=== PATIENT | female | born 1960 | race Caucasian/White ===

== ENCOUNTER 2019-09-03 08:33 | Outpatient (CLI) | payer OTHER, SELFPAY ==
--- NOTE | 2019-09-03 08:41 | EST_ITS ---
Patient Info Name: Lizzy Evans Age: 58 years : 1960 Gender: Female Ht: 61 in Wt: 196 lbs BSA: 2.00 m2 Exam Date: 09/03/2019 8:58 AM Exam Location: [facility] Stress Patient Status: Outpatient Admit Date: 09/03/2019 Staff Ordering Physician: Jamee Melendez NP Attending Provider: Shazia Ruiz MD Exercise Technologist: Indy William RDCS Exercise Physician: Дмитрий Toribio DO Exam Type: CA stress test treadmill Study Info Indications R06.00 - Dyspnea, unspecified A treadmill exercise stress test was performed. Summary 1. 1. Negative Juan Carlos exercise stress test for ischemic ST changes by ECG criteria. 2. 2. Poor functional capacity, achieving 4 METs of workload. 3. 3. Appropriate HR response to exercise. 4. 4. Appropriate HR recovery at 1 minute post exercise. 5. 5. No imaging with stress testing. 6. 6. Patient informed of the avove results. Protocol: Juan Carlos Stress ECG Details Stage: REST Duration (min): 5 min : 1 sec Speed (mph): 0.0 Grade (%): 0 HR (bpm): 101 SBP (mmHg): --- DBP (mmHg): --- METS: --- Stage: REST Duration (min): 7 min : 33 sec Speed (mph): 0.0 Grade (%): 0 HR (bpm): 111 SBP (mmHg): --- DBP (mmHg): --- METS: --- Stage: STAGE 1 Duration (min): 1 min : 0 sec Speed (mph): 1.7 Grade (%): 10 HR (bpm): 130 SBP (mmHg): --- DBP (mmHg): --- METS: --- Stage: STAGE 1 Duration (min): 2 min : 0 sec Speed (mph): 1.7 Grade (%): 10 HR (bpm): 142 SBP (mmHg): --- DBP (mmHg): --- METS: --- Stage: STAGE 1 Duration (min): 3 min : 0 sec Speed (mph): 1.7 Grade (%): 10 HR (bpm): 147 SBP (mmHg): --- DBP (mmHg): --- METS: --- Stage: RECOVERY Duration (min): 0 min : 59 sec Speed (mph): 0.0 Grade (%): 0 HR (bpm): 136 SBP (mmHg): --- DBP (mmHg): --- METS: --- Stage: RECOVERY Duration (min): 1 min : 59 sec Speed (mph): 0.0 Grade (%): 0 HR (bpm): 117 SBP (mmHg): --- DBP (mmHg): --- METS: --- Stage: RECOVERY Duration (min): 2 min : 59 sec Speed (mph): 0.0 Grade (%): 0 HR (bpm): 116 SBP (mmHg): --- DBP (mmHg): --- METS: --- Stage: RECOVERY Duration (min): 3 min : 56 sec Speed (mph): 0.0 Grade (%): 0 HR (bpm): 110 SBP (mmHg): --- DBP (mmHg): --- METS: --- Rest HR: 111 bpm Peak HR: 147 bpm Max Pred HR: 164 bpm % Max Pred HR: 90 % Target HR: 139 bpm Robledo Score: -11 Termination Reason: Reached target heart rate or workload Cardiac Symptoms: Shortness of breath Max ST Seg Deviation: 2.90 mm Total Time: 3 min : 0 sec Angina Score: None Total METS: 4.7 Resting ECG Sinus rhythm, IRBBB, PRWP. Stress ECG No ST changes. Arrhythmias None. Report Signatures
== END 2019-09-03 08:34 | disposition home or self-care (01) ==
LOC: ANHCARD 08:33
PROVIDERS: PCP Family Medicine; Visit Provider Family Medicine
DX: R06.00 Dyspnea, unspecified (principal)
CPT/HCPCS: 93017

== ENCOUNTER 2019-12-31 07:51 | Outpatient (CLI) | payer OTHER, SELFPAY ==
--- NOTE | 2020-01-06 14:51 | WPDPFTINT ---
PFT Interpretation PFT Interpretation: This PFT met all criteria for ATS standards and reproducibility FEV/FVC post bronchodilator 69% FEV1 69% or 1.43 liters FVC 74% or 2.08 liters No bronchodilator challenge was ordered TLC 74% or 3.18 liters RV 70% RV/TLC 35% DLCO 57% when adjusted for alveolar volume but not adjusted for hemoglobin Flow volume loops showed some expiratory coving Impression: Combined obstructive/restrictive ventilatory defect with moderately reduced diffusion capacity. No bronchodilator challenge was ordered and thus limits interpretability somewhat. Clinical correlation is advised.
== END 2019-12-31 07:52 | disposition home or self-care (01) ==
PROVIDERS: PCP Family Medicine; Visit Provider Nurse Practitioner
DX: R06.02 Shortness of breath (principal); R94.2 Abnormal results of pulmonary function studies
CPT/HCPCS: 94375; 94726; 94729

== ENCOUNTER 2020-01-12 06:03 | Emergency (ER) | payer OTHER, SELFPAY ==
--- NOTE | ~2020-01-12 | CT_ITS ---
EXAMINATION: CT abdomen pelvis w con EXAM DATE: 01/12/2020 07:19 INDICATION: Abdominal pain, constipation, symptoms 5 days. TECHNIQUE: Spiral CT of the abdomen and pelvis was performed following intravenous injection of 100 m L Omnipaque 350. Axial, coronal and sagittal images were reviewed. The dose-length product (DLP) fo r this examination was 1129.82 mGy-cm. The exposure was tailored according to patient size (auto mA exposure control), and iterative reconstruction (ASIR) was used as additional dose reduction techniqu e. Comparison is made to prior examination from 11/07/2015. FINDINGS: There are several loops of moderately distended jejunum with air-fluid levels, along with a loop that demonstrates mild small bowel wall thickening (indicated on axial image 124). There is no pneumatosis, portal venous gas. The mesenteric vasculature enhances normally. There is a gradual parry sition to normal calibered ileum. Most likely nonspecific consider enteritis, infectious etiology, in flammatory bowel disease. The liver, spleen, adrenal glands and pancreas are unremarkable. Gallbladder is unremarkable. No bi liary obstruction. Portal and splenic veins are patent. Kidneys enhance symmetrically. Bicornuate uterus. 5 mm left calyceal or calyceal diverticular stone. No hydronephrosis or ureteral stone. The bladder is unremarkable. There is no retroperitoneal or pelvic lymphadenopathy. There are small nodules of soft tissue in the pelvis less than 2 cm, a couple on either side of the r ectum, unchanged or decreased in size compared to prior study. Also, an exiting right S2 nerve root i s expanded, more likely than dilated nerve root sleeve. These could be benign neurogenic tumors, such as schwannomas. Reportedly these one was previously biopsied in 2016, correlate with report from [facility] histology. The appendix is normal. There is colonic fluid, correlate for diarrhea. No free intraperitoneal gas. The heart is normal in size. There are no pericardial or pleural effusions. The lung bases a re unremarkable. There are no osteoblastic or osteolytic lesions identified. IMPRESSION: 1. Moderately dilated jejunal loops without transition point, approximately 20 cm segment of mild sm all bowel wall thickening. Colonic fluid. Consider enteritis, inflammatory bowel disease. 2. Stable small pelvic soft tissue masses, could be neurogenic tumors or other benign histology, cor relate with prior biopsy result. Reviewed, dictated and finalized at location A. ER HEEL TAP IMPRESSION: 1. Moderately dilated jejunal loops without transition point, approximately 20 cm segment of mild small bowel wall thickening. Colonic fluid. Consider enteri tis, inflammatory bowel disease. 2. Stable small pelvic soft tissue masses, could be neurogenic tumors or other benign histology, correlate with prior biopsy result.
[2020-01-12 06:10] VITALS: BP 142/84; PULSE 114; RESP 18; TEMP 35.9; O2SAT 95
--- NOTE | 2020-01-12 06:26 | ED.GENADULT ---
HPI - General Adult General Chief complaint: Unspecified <Carrington Alexander DO - Last Filed: 01/12/20 19:04> Stated complaint: constipated x1week, vomiting <Carrington Alexander DO - Last Filed: 01/12/20 19:04> Time Seen by Provider: 01/12/20 06:07 <Carrington Alexander DO - Last Filed: 01/12/20 19:04> Source: RN notes reviewed <Carrington Alexander DO - Last Filed: 01/12/20 19:04> History of Present Illness HPI narrative: Patient presents to emergency department from home for abdominal pain. Patient states that she has not had a bowel movement in the past 5 days. States she gone to her PCP yesterday and was prescribed magnesium citrate which she drank and vomited and states she has had numerous episodes of vomiting since that time. States she is also developed abdominal pain in the lower abdomen bilaterally described as cramping. She has any fevers or chills chest pain shortness of breath or any other symptoms she is taken no previous medication for the symptoms <Carrington Alexander DO - Last Filed: 01/12/20 19:04> Related Data Home medications: Home Medications Medication Instructions Recorded Confirmed albuterol sulfate [ProAir HFA] INHALATION 01/15/19 11/13/19 bupropion HCl 75 mg tablet ea PO 08/17/19 11/13/19 ezetimibe 10 mg tablet 10 mg PO DAILY tablet 08/17/19 11/13/19 sennosides 8.6 mg tablet 8.6 mg PO DAILY 01/11/20 <Carrington Alexander DO - Last Filed: 01/12/20 19:04> Allergies/adverse reactions: Allergies Allergy/AdvReac Type Severity Reaction Status Date / Time morphine Allergy Unknown itchy Verified 01/11/20 07:59 <Carrington Alexander DO - Last Filed: 01/12/20 19:04> Review of Systems Review of Systems: Narrative: Gen.: Denies fevers or chills ENT: Denies congestion Respiratory: Denies shortness of breath or cough CV: Denies chest pain or palpitations GI: See HPI denies burning, urgency, frequency or hematuria Musculoskeletal: Denies back pain or muscle pain Neuro: Denies numbness, tingling, weakness or focal weakness Skin: Denies rash Except as documented, all other systems reviewed and negative <Carrington Alexander DO - Last Filed: 01/12/20 19:04> PENDING SALE TO [facility] Past Medical History Medical History: Medical History (Updated 01/12/20 @ 10:16 by Melissa Donis MD) Anemia Arthritis Asthma Bronchitis Chronic back pain Depression Dyspnea on exertion Fractures Arm Hypercholesteremia Hypothyroidism Localized edema Migraines Mitral valve prolapse <Carrington Alexander DO - Last Filed: 01/12/20 19:04> Surgical History Surgical History: Surgical History History of orthopedic surgery Left knee, 1980 Previous section <Carrington Alexander DO - Last Filed: 01/12/20 19:04> Family History Family History: Family History Mother Hypertension Heart disease COPD (chronic obstructive pulmonary disease) Father Family history of coronary artery disease <Carrington Alexander DO - Last Filed: 01/12/20 19:04> Social History Social History: Social History Smoking status: Never smoker Alcohol intake: current <Carrington Alexander DO - Last Filed: 01/12/20 19:04> Exam Narrative: Exam Narrative: APPEARANCE: No acute distress, nontoxic, resting in bed HEENT: Normocephalic, atraumatic, OMM RESPIRATORY: No respiratory distress, clear to auscultation bilaterally with no rhonchi wheezing or rales CARDIOVASCULAR: RRR s murmur ABDOMINAL: Soft, nondistended, tender palpation right lower quadrant left lower quadrant, no tenderness right upper quadrant left upper quadrant no rebound or guarding MUSCULOSKELETAl: Moves all extremities. No clubbing, cyanosis or edema. NEURO: Awake and alert. Following commands, speech normal, no focal deficits SKIN:: Warm, dry. Normal Color PSYCHIATRI
[2020-01-12 06:38] LABS: Basophils Absolute Auto 0.1 K/mm3 (0.0-0.1); Basophils Percent Auto 0.7 % (0.2-1.2); Eosinophils Absolute Auto 0.3 K/mm3 (0-0.3); Eosinophils Percent Auto 1.9 % (0-4.4); Hematocrit 44.7 % (37.0-47.0); Hemoglobin 14.6 g/dL (12.0-15.0); Immature Granulocyte Absolute 0.16 K/mm3 (0.00-0.031); Immature Granulocyte Percent A 1.1 % (0-0.5); Lymphocytes Absolute Auto 2.11 K/mm3 (0.9-3.2); Mean Corpuscular HGB Conc 32.7 g/dl (32-36); Mean Corpuscular Hemoglobin 29.4 pg (26-34); Mean Corpuscular Volume 89.9 fl (80-100); Mean Platelet Volume 9.8 fl (7.4-10.4); Monocytes Absolute Auto 1.1 K/mm3 (0.1-0.6); Monocytes Percent Auto 7.3 % (2.6-8.5); Neutrophils Absolute Auto 11.4 K/mm3 (1.3-6.7); Platelet Count Result 401 k/mm3 (150-375); Red Blood Count 4.97 M/mm3 (4.2-5.4); Red Cell Distribution Width 13.3 % (11.5-14.5); White Blood Count 15.1 K/mm3 (4.5-10.0)
[2020-01-12] MEDS: SODIUM CHLORIDE 0.9% IV 1,000 ML 999 ML IV CONT ×2 (06:41→08:17)
[2020-01-12] MEDS: ONDANSETRON INJ 4 MG/2 ML VIAL IV PUSH (06:41)
[2020-01-12 06:54] LABS: Alanine Aminotransferase 20 U/L (4-35); Albumin Level 4.4 g/dL (3.5-5.1); Alkaline Phosphatase 154 U/L (38-126); Anion Gap 9 mmol/L (8-16); Aspartate Amino Transferase 23 U/L (14-36); Bilirubin,Total 1.5 mg/dL (0.2-1.3); Blood Urea Nitrogen 15 mg/dL (7-17); Calcium 10.4 mg/dL (8.4-10.2); Carbon Dioxide 32 mmol/L (22-30); Chloride 99 mmol/L (98-107); Estimated Glomerular Filt Rate > 60; Glucose 137 mg/dL (65-105); Lipase 23 U/L (23-300); Potassium 4.2 mmol/L (3.4-5.0); Sodium 140 mmol/L (137-145)
[2020-01-12 07:35] VITALS: BP 151/87; PULSE 110; RESP 19; O2SAT 94
[2020-01-12 07:49] LABS: Add Urine Microscopic? YES; Appearance Urine Clear (Clear); Bacteria Urine Trace /hpf; Bilirubin Urine Negative (Negative); Blood Urine Negative (Negative); Color Urine Yellow (Yellow); Glucose Urine UA Negative (Negative); Ketones Urine Trace mg/dL (Negative); Leukocyte Esterase Ur 2+ LEU/UL (Negative); Mucus Urine Few /lpf; Nitrate Urine Negative (Negative); Protein Urine Negative (Negative); Specific Grav Ur > 1.060 (1.001-1.035); Squamous Epithelial Cell Urine Many /hpf (Few); Urobilinogen Urine Negative mg/dL (<2.0); WBC Urine 31-50 /hpf
[2020-01-12 08:59] VITALS: BP 155/77; PULSE 90; RESP 17; O2SAT 94
[2020-01-12 10:11] VITALS: BP 161/91; PULSE 94; RESP 18; O2SAT 95
[2020-01-12 10:34] VITALS: BP 147/86; PULSE 96; RESP 18; O2SAT 95
== END 2020-01-12 10:35 | disposition home or self-care (01) ==
PROVIDERS: Emergency Medicine; Emergency Provider General Practice; PCP Family Medicine
DX: K52.9 Noninfective gastroenteritis and colitis, unspecified (principal); N39.0 Urinary tract infection, site not specified
CPT/HCPCS: 36415; 74177; 80053; 81001; 83690; 85025; 87086; 87088; 96361; 96374; 96375; 99284; J0131; J2405; J7030; Q9967

== ENCOUNTER 2020-02-04 07:38 | Outpatient (CLI) | payer OTHER, SELFPAY ==
--- NOTE | ~2020-02-04 | US_ITS ---
US right upper quadrant INDICATION: Right upper quadrant pain PROCEDURE: Realtime right upper abdominal ultrasound. COMPARISON: Ultrasound dated 06/25/2014 FINDINGS: Pancreas is obscured by bowel gas. Liver echotexture is increased, consistent with fatty i nfiltration. There is normal directional flow in the portal vein. There is comet tail artifact originating from the gallbladder wall. Gallbladder wall is mildly thicke hardy measuring 2.7 mm. Common bile duct measures 3 mm. No sonographic Baker's sign. IMPRESSION: 1: Gallbladder wall thickening with comet tail artifact, consistent with adenomyomatosis. This could indicate interstitial edema, chronic liver disease or chronic cholecystitis. 2: Fatty infiltration of the gallbladder. Reviewed, dictated and finalized at location A. [facility] MAGISTRATE IMPRESSION: 1: Gallbladder wall thickening with comet tail artifact, consistent with adenom yomatosis. This could indicate interstitial edema, chronic liver disease or chr onic cholecystitis. 2: Fatty infiltration of the gallbladder.
== END 2020-02-04 07:39 | disposition home or self-care (01) ==
PROVIDERS: PCP Family Medicine; Visit Provider Nurse Practitioner
DX: R10.11 Right upper quadrant pain (principal); R93.2 Abnormal findings on diagnostic imaging of liver and biliary tract
CPT/HCPCS: 76705

== ENCOUNTER 2020-02-18 07:39 | Outpatient (CLI) | payer OTHER, SELFPAY ==
--- NOTE | ~2020-02-18 | NM_ITS ---
NM hepatobiliary w pharm Procedure: Hepatobiliary scan performed following IV administration 5 mCi Tc 99m Choletec. At 60 min utes 1.8 mcg CCK administered IV for evaluation of gallbladder ejection fraction. Indication: Chronic cholecystitis Comparison: Ultrasound dated 02/04/2020 Findings: There is normal radiotracer uptake in the liver parenchyma with prompt excretion into the b iliary tract. Gallbladder visualized at 25 minutes. Small bowel visualized at 40 minutes. Gallbla dder ejection fraction measures 28 %. (Normal is considered 10-90%, but most patients with gallbladde r dysfunction have GBEF of less than 35%) Impression: 1: Gallbladder ejection fraction below normal limits measuring 28%. Low GBEF is associated with gall bladder dysfunction, although not specific for acute or chronic cholecystitis. Reviewed, dictated and finalized at location A. O OPERATOR Impression: 1: Gallbladder ejection fraction below normal limits measuring 28%. Low GBEF i s associated with gallbladder dysfunction, although not specific for acute or c hronic cholecystitis.
== END 2020-02-18 07:40 | disposition home or self-care (01) ==
LOC: ANHIMG 07:43
PROVIDERS: PCP Family Medicine; Visit Provider Surgery
DX: K81.1 Chronic cholecystitis (principal)
CPT/HCPCS: 78227; A9537; J2805

== ENCOUNTER 2020-02-28 09:14 | Outpatient (CLI) | payer OTHER, SELFPAY ==
--- NOTE | 2020-04-09 13:59 | WPDHOMESLEEP ---
Sleep Study - Home Unattended Date of Study: 02/28/20 Ordering Provider: Radha Kim NP Interpreting Physician: Bria Ferris MD Home Sleep Study Type: Watch PAT Height: 1.55 m Weight: 90.718 kg Body Mass Index: 37.8 Neck Circumference (inches): 16 [place]: 11 Reason for Sleep Study hypersomnia Sleep History Lizzy Evans is a 59 year old female with occasional snoring, rarely loud enough that others complain about it. She rarely awakens at night with heartburn, belching or coughing. She rarely awakens from sleep feeling short of breath. She frequently has trouble sleep with a cold. She rarely wakes up gasping for breath at night, rarely has breathing problems at night observed by others and rarely sweats excessively at night. She does not notice her heart pounding or beating irregularly at night. She constantly falls asleep during the day. She frequently falls asleep involuntarily. She does not indicate whether not she falls asleep while driving. She rarely falls asleep while exerting physical effort. She does not have loss of muscle tone was strong emotion. 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 She rarely feels paralyzed on waking or falling asleep. She occasionally has vivid dreamlike scenes upon awakening or falling asleep. She rarely feels afraid to go to sleep. She rarely has nightmares. She occasionally remembers her dreams and occasionally has racing thoughts. She frequently feels sad, depressed and anxious. She frequently has muscular tension. She frequently notices parts of her body jerking. She frequently kicks at night. She frequently has crawling and aching feelings in her legs. She occasionally has leg pain at night. She rarely has morning jaw pain. She rarely grinds her teeth during sleep. She occasionally has bothered by pain during the day. She rarely is awakened by pain at night. She occasionally wakes up feeling stiff in the morning with sore or achy muscles. She occasionally wakes up with pain in the neck and spine. She has fatigue, headaches bowel disturbances and has difficulty making decisions. She complains of insomnia. Normal bedtime is 12 midnight, sometimes falling asleep quickly, but at other times taking quite a while to fall asleep. She wakes up about 3 times at night. She stays awake for about an hour. While awake she goes to the bathroom. She wakes in the morning at 6:00 a.m.. The weekend schedule is the same. She estimates 4-5 hours of sleep at night. She may stay in bed a few hours after waking up. She does take naps in the afternoon or evening. Short naps are not refreshing. She is usually drowsy in the morning for 1 hour or longer. Habits: never smoked tobacco. She drinks caffeine daily. No alcohol or recreational drugs. [facility] Past Medical History Medical History Anemia Arthritis Asthma BMI 39.0-39.9,adult Bronchitis Chronic back pain Depression Dyspnea on exertion Fractures Arm History of blood transfusion Hypercholesteremia Hypothyroidism Localized edema Migraines Mitral valve prolapse Surgical History Surgical History H/O tubal ligation History of hemorrhoidectomy History of orthopedic surgery Left knee, 1979 Hx laparoscopic cholecystectomy 03/13/20 Previous section Family History Family History Mother Hypertension Heart disease COPD (chronic obstructive pulmonary disease) Father , 70 Family history of coronary artery disease Social History Social History Smoking status: Never smoker Alcohol intake: current Substance use: never 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
[2020-04-09 14:08] VITALS: BMI 37.8
== END 2020-02-28 09:15 | disposition home or self-care (01) ==
LOC: ANHCSM 09:16
PROVIDERS: PCP Family Medicine; Visit Provider Nurse Practitioner
DX: G47.33 Obstructive sleep apnea (adult) (pediatric) (principal)
CPT/HCPCS: 95800

== ENCOUNTER 2020-03-10 01:46 | Outpatient (CLI) | payer OTHER, SELFPAY ==
[2020-03-10 16:31] LABS: SARS-CoV-2 RNA PCR Negative
== END 2020-03-10 01:47 | disposition home or self-care (01) ==
LOC: ANHCOVIDDT 01:50
PROVIDERS: PCP Family Medicine; Visit Provider Surgery
DX: Z01.812 Encounter for preprocedural laboratory examination (principal); Z20.822 Contact with and (suspected) exposure to COVID-19
CPT/HCPCS: 36415; 80048; 80076; 82150; 83690; 86850; 86900; 86901; 93005; C9803; U0003; U0005

== ENCOUNTER 2020-03-10 11:18 | Outpatient (CLI) | payer OTHER, SELFPAY ==
--- NOTE | 2020-03-10 11:20 | ECG_ITS ---
Measurements Intervals [place] Rate: 105 P: 12 WI: 145 QRS: 259 QRSD: 105 T: 14 QT: 334 QTc: 442 Interpretive Statements SINUS TACHYCARDIA RSR' IN V1 OR V2, CONSIDER RIGHT VENTRICULAR HYPERTROPHY OR RIGHT VCD CONSIDER INFERIOR INFARCT, AGE INDETERMINATE BORDERLINE T WAVE ABNORMALITY- ANTERIOR LEADS BASELINE ARTIFACT- I, III, V3 ABNORMAL ECG Electronically Signed On 03-10-2020 11:50:11 MED DIR by Дмитрий Toribio D.O.
[2020-03-10 12:27] LABS: Alanine Aminotransferase 16 U/L (4-35); Albumin Level 4.2 g/dL (3.5-5.1); Alkaline Phosphatase 101 U/L (38-126); Amylase 56 U/L (30-110); Aspartate Amino Transferase 19 U/L (14-36); Bilirubin,Total 0.9 mg/dL (0.2-1.3); Lipase 42 U/L (23-300)
[2020-03-10 14:27] LABS: Anion Gap 8 mmol/L (8-16); Blood Urea Nitrogen 17 mg/dL (7-17); Calcium 9.9 mg/dL (8.4-10.2); Carbon Dioxide 29 mmol/L (22-30); Chloride 104 mmol/L (98-107); Estimated Glomerular Filt Rate > 60; Glucose 98 mg/dL (65-105); Potassium 3.9 mmol/L (3.4-5.0); Sodium 141 mmol/L (137-145)
== END 2020-03-10 11:19 | disposition home or self-care (01) ==
LOC: ANHSURGERY 11:20
PROVIDERS: Anesthesiology; PCP Family Medicine; Visit Provider Surgery
DX: Z01.818 Encounter for other preprocedural examination (principal); R94.31 Abnormal electrocardiogram [ECG] [EKG]; K81.1 Chronic cholecystitis; Z79.899 Other long term (current) drug therapy
CPT/HCPCS: 36415; 80048; 80076; 82150; 83690; 86850; 86900; 86901; 93005

== ENCOUNTER 2020-03-13 01:34 | Day surgery (SDC) | payer OTHER, SELFPAY ==
[2020-03-03 17:07] VITALS: BMI 39.1
--- NOTE | 2020-03-12 11:02 | PM.SD ---
Same Day Admit/Disch: HPI History of Present Illness Chief complaint: Chronic Cholecystits With Stones Narrative: Lizzy Evans is a 59 year old female Who has chronic postprandial right upper quadrant abdominal pain. Initially this was after eating fatty foods but now she has pain with eating nearly anything. She has a strong family history of gallbladder disease in that both her sister and her mother have had cholecystectomy. The patient had an ultrasound of the gallbladder which did not show stones but did show adenomyomatosis. She had a HIDA scan which showed a low gallbladder ejection fraction of 28%. She is felt to have chronic cholecystitis and is taken to surgery for laparoscopic cholecystectomy. [facility] Past Medical History Medical History Anemia Arthritis Asthma BMI 39.0-39.9,adult Bronchitis Chronic back pain Depression Dyspnea on exertion Fractures Arm History of blood transfusion Hypercholesteremia Hypothyroidism Localized edema Migraines Mitral valve prolapse Surgical History Surgical History H/O tubal ligation History of hemorrhoidectomy History of orthopedic surgery Left knee, 1979 Previous section Family History Family History Mother Hypertension Heart disease COPD (chronic obstructive pulmonary disease) Father , 70 Family history of coronary artery disease Social History Social History Smoking status: Never smoker Alcohol intake: current Substance use: never Living arrangements: with family 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 Spiritual care concerns: No Same Day Admit/Disch: Med Pre-admit Medications Home Medications Medication Instructions Recorded Confirmed Type albuterol sulfate [ProAir HFA] 2 puff INHALATION PRN PRN 01/15/19 03/13/20 History ezetimibe 10 mg tablet 10 mg PO DAILY tablet 08/17/19 03/13/20 History fluticasone 250 mcg-salmeterol 50 1 inhalation INHALATION BID #60 08/20/19 03/13/20 Rx mcg/dose blistr powdr for each inhalation furosemide 20 mg tablet 20 mg PO QAM #30 tablet 11/12/19 03/13/20 Rx potassium chloride 10 mEq 10 meq PO DAILY #30 tablet 11/13/19 03/13/20 Rx tablet,extended release levothyroxine 175 mcg tablet 175 mcg PO DAILY #90 tablet 11/29/19 03/13/20 Rx cholecalciferol (vitamin D3) 1,250 1,250 mcg PO WEEKLY #12 cap 12/10/19 03/03/20 Rx mcg (50,000 unit) capsule hydrocodone-acetaminophen 1 - 2 tablet PO Q6H PRN #7 tablet 03/13/20 Rx ketorolac 10 mg PO Q6H 4 Days #16 tablet 03/13/20 Rx Exam Const: General: comfortable, no acute distress, alert and awake HENMT: Head: normocephalic and atraumatic Mouth: Yes Normal oral and palatal mucosa present Eyes: Conjunctivae: conjunctivae normal Pupils: Equal, round and reactive pupils present EOM: EOMs intact bilaterally Neck: Neck: normal visual inspection, no lymphadenopathy and nontender Resp: Effort & Inspection: normal respiratory effort Auscultation: clear to auscultation bilaterally Cardio: Rate: regular rate Rhythm: regular rhythm Heart sounds: no gallops, no murmurs and no rubs GI: Inspection: non-distended GI Palp: Yes Soft to palpation, No Tenderness to palpation present (GI), No Hepatomegaly present and No Splenomegaly present Skin: Lesions: no lesions Rashes: no rashes Neuro: General: no focal motor deficits and CN's II-XI intact bilaterally Cranial nerves: Yes Equal, round and reactive pupils present, Yes Bilaterally intact EOM present, Yes facial symmetry and Yes Midline tongue present Speech: normal speech Motor exam (neuro): 5/5 motor strength present throughout and Motor abnormalities not present Extrem: General: no clubbing, cyanosis or edema and edema Psych: Affect: normal affect Thou
--- NOTE | 2020-03-12 13:24 | WPDANESEPPF ---
Anes - Initial Pre Proc Eval Procedure: Operation Date: 03/13/20 10:30 Proposed Procedures p Laparoscopic Cholecystectomy - Eldon Ardon MD Date/Time: 03/12/20 13:24 Surgeon: Eldon Ardon MD Pre Op Diagnosis: Chronic Cholecystits With Stones Patient Data Age: 59 Gender: F Height: 1.55 m Weight: 94 kg Allergies Allergy/AdvReac Type Severity Reaction Status Date / Time morphine Allergy Mild Itching Verified 03/13/20 08:18 Home Medications Medication Instructions Recorded Confirmed Type albuterol sulfate [ProAir HFA] 2 puff INHALATION PRN PRN 01/15/19 03/13/20 History ezetimibe 10 mg tablet 10 mg PO DAILY tablet 08/17/19 03/13/20 History fluticasone 250 mcg-salmeterol 50 1 inhalation INHALATION BID #60 08/20/19 03/13/20 Rx mcg/dose blistr powdr for each inhalation furosemide 20 mg tablet 20 mg PO QAM #30 tablet 11/12/19 03/13/20 Rx potassium chloride 10 mEq 10 meq PO DAILY #30 tablet 11/13/19 03/13/20 Rx tablet,extended release levothyroxine 175 mcg tablet 175 mcg PO DAILY #90 tablet 11/29/19 03/13/20 Rx cholecalciferol (vitamin D3) 1,250 1,250 mcg PO WEEKLY #12 cap 12/10/19 03/03/20 Rx mcg (50,000 unit) capsule ECG: Date of Service: 03/10/20 Procedure(s): CA 12 lead EKG Accession Number(s): [id number] cc: ~ Measurements Intervals [place] Rate: 105 P: 12 AL: 145 QRS: 259 QRSD: 105 T: 14 QT: 334 QTc: 442 Interpretive Statements SINUS TACHYCARDIA RSR' IN V1 OR V2, CONSIDER RIGHT VENTRICULAR HYPERTROPHY OR RIGHT VCD CONSIDER INFERIOR INFARCT, AGE INDETERMINATE BORDERLINE T WAVE ABNORMALITY- ANTERIOR LEADS BASELINE ARTIFACT- I, III, V3 ABNORMAL ECG Electronically Signed On 03-10-2020 11:50:11 CRYSTAL INSPECTOR by Дмитрий Toribio D.O. Dictated By: Дмитрий Toribio DO 03/10/20 1157 Other Studies: Exam Date: 09/03/2019 8:58 AM A treadmill exercise stress test was performed. Summary 1. 1. Negative Juan Carlos exercise stress test for ischemic ST changes by ECG criteria. 2. 2. Poor functional capacity, achieving 4 METs of workload. 3. 3. Appropriate HR response to exercise. 4. 4. Appropriate HR recovery at 1 minute post exercise. 5. 5. No imaging with stress testing. 6. 6. Patient informed of the avove results. Patient hx anesthesia problems: none Family hx anesthesia problems: none PMFSH Past Medical History Medical History (Updated 03/12/20 @ 13:25 by Faustino Crowell MD) Anemia Arthritis Asthma BMI 39.0-39.9,adult Bronchitis Chronic back pain Depression Dyspnea on exertion Fractures Arm History of blood transfusion Hypercholesteremia Hypothyroidism Localized edema Migraines Mitral valve prolapse Surgical History Surgical History H/O tubal ligation History of hemorrhoidectomy History of orthopedic surgery Left knee, 1979 Previous section Family History Family History Mother Hypertension Heart disease COPD (chronic obstructive pulmonary disease) Father , 70 Family history of coronary artery disease Social History Social History Smoking status: Never smoker Alcohol intake: current Substance use: never Living arrangements: with family 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
[2020-03-13] VITALS (16 sets, daily range): BP systolic 103–159; BP diastolic 43–72; PULSE 75–115; RESP 16–24; TEMP 36.3–36.4; O2SAT 92–98
--- NOTE | ~2020-03-13 | CT_ITS ---
EXAMINATION: CT chest w con DATE: 03/13/2020 15:22 INDICATION: abnormal chest xray TECHNIQUE: Computed tomography (CT) of the chest was performed with 100 mL Omnipaque-350 intravenous contrast. Additional 3D reconstructions utilizing coronal maximum intensity projection (MIP) were per formed. Automated exposure control and iterative reconstruction technique were employed. The dose-rhea gth product was 633.26 mGy-cm. COMPARISON: None FINDINGS: Decreased left lung volume with elevation of the left hemidiaphragm. Consolidation at the posterior m edial aspect of the right lower lobe and posterior aspect of the left lower lobe and there is bandlik e regions of consolidation in the posterior aspect of the bilateral upper lobes, all with associated volume loss with bronchovascular crowding favoring atelectasis over pneumonia. There is relatively ho mogeneous enhancement of the atelectatic lung. No pulmonary edema or pleural effusion. Cardiomegaly. Enlargement of the main pulmonary artery consistent with pulmonary arterial hypertension. Although no t performed as a dedicated pulmonary embolism protocol there is good contrast desiccation of the pulm onary arteries demonstrating no pulmonary embolism. Thoracic aorta is normal in caliber with no disse ction. There is lipomatosis of the superior mediastinum which appears to account for the mediastinal widening on the prior radiograph. No pathologically enlarged thoracic lymphadenopathy. Cholecystectom y clips at the gallbladder fossa. There is a small amount of gas in the fat anterior upper abdomen as well as in the anterior and right anterolateral upper abdominal wall consistent with provided histor y of recent prior surgery. IMPRESSION: 1. Mediastinal widening on prior radiographs results from mediastinal lipomatosis. 2. Small lung volumes with regions of consolidation in the bilateral upper and lower lobes with appea nicko favoring atelectasis over pneumonia. 3. Cardiomegaly with enlargement of the main pulmonary artery consistent with pulmonary arterial hype rtension. 4. Postoperative changes consistent with recent cholecystectomy. Reviewed, dictated and finalized at location A. ITALIST IMPRESSION: 1. Mediastinal widening on prior radiographs results from mediastinal lipomatos is. 2. Small lung volumes with regions of consolidation in the bilateral upper and lower lobes with appearance favoring atelectasis over pneumonia. 3. Cardiomegaly with enlargement of the main pulmonary artery consistent with p ulmonary arterial hypertension. 4. Postoperative changes consistent with recent cholecystectomy.
--- NOTE | ~2020-03-13 | XR_ITS ---
EXAMINATION: XR chest 1V portable DATE: 03/13/2020 12:27 INDICATION: Shortness of breath. TECHNIQUE: A single frontal view of the chest was obtained. COMPARISON: Chest single view 11/10/2016, CT abdomen and pelvis 01/12/2020 FINDINGS: There is chronic elevation of left hemidiaphragm. There are airspace opacities in the left lung with a perihilar predominance. There are mild airspace opacities in right mid and lower lung zon es. No pleural effusion or pneumothorax. The heart size is normal. There is new widening of the super ior mediastinum. Surgical clips in the right upper quadrant are likely from cholecystectomy. IMPRESSION: 1. New widening of the superior mediastinum suspicious for lymphadenopathy or hematoma. Chest CT is r ecommended. 2. Airspace opacities in left lung and right mid and lower lung zones, consistent with atelectasis ve rsus pneumonia. Reviewed, dictated and finalized at location B. 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 New widening of the superior mediastinum suspicious for lymphadenopathy or h ematoma. Chest CT is recommended. 2. Airspace opacities in left lung and right mid and lower lung zones, consiste nt with atelectasis versus pneumonia.
[2020-03-13] MEDS: ACETAMINOPHEN 500 MG TABLET 1000 MG PO (08:35)
[2020-03-13] MEDS: LACTATED RINGERS 1,000 ML 30 ML IV CONT ×2 (08:53→12:21)
[2020-03-13] MEDS: KETOROLAC 15 MG/ML VIAL (*BKC) IV PUSH (08:54)
--- NOTE | 2020-03-13 10:20 | WPDHPUPDATE1 ---
History and Physical Update Update Date/Time: 03/13/20 10:20 History and Physical has been reviewed, including an updated exam of the patient. There are NO changes in the patient's condition. Risks, benefits, and alternatives have been discussed and questions answered. Patient agrees to proceed with procedure.
[2020-03-13] MEDS: ceFAZolin 2 GM/D5W 50 ML 2 GM/50 ML BAG IVPB (10:28)
[2020-03-13] MEDS: BUPIVACAINE/EPINEPHRINE 0.5% 10 ML VIAL 20 ML INFILTRATE (10:49)
--- NOTE | 2020-03-13 11:51 | PM.PROC ---
Procedure Note - Detailed Date of procedure: 03/13/20 Pre-op diagnosis: Chronic Cholecystitis Chronic Cholecystitis Post-op diagnosis: same Procedure performed: Laparoscopic cholecystectomy Description of procedure: The patient was taken to surgery and induced into general anesthesia. The abdomen was prepped and draped. Trocars were placed in the usual fashion using 0.5% Marcaine with epinephrine and applied Medical optical trocars. A 5 millimeter camera was used. There were extensive anterior abdominal wall adhesions starting just below the liver and extending to the edge of the right lobe of the liver as well as over the dome of the liver. These had to be taken down as the trocars were being placed. Eventually we were able to dissect on the right lobe of the liver looking for the gallbladder. The gallbladder was encased in adhesions as well. Eventually the fundus of the gallbladder was able to be exposed. This was grasped and elevated. Continued dissection freed adhesions to most of the gallbladder. The gallbladder was decompressed with a laparoscopic aspirator. The cholecystotomy was closed with a Vicryl endo-loop. The gallbladder was retracted anterosuperiorly. More adhesions to the gallbladder were taken down so that the cholecystohepatic triangle was exposed. Traction was placed on the infundibulum. The cystic duct and cystic artery were dissected out very clearly. The gallbladder was dissected off the liver at its lower 3rd. Critical view was achieved. We securely clipped and divided the cystic duct and cystic artery. The gallbladder was then further retracted so that the peritoneal attachments to the liver could be divided. Once the gallbladder was freed entirely, it was placed in an Endo-Catch bag and retrieved through the 10 11 epigastric trocar site. The epigastric trocar was then replaced. We reviewed the right upper quadrant. It was irrigated and suctioned. All looked good with no evidence of bleeding or bile leakage. We evacuated CO2 and removed the trocar sleeves. Skin wounds were closed with subcuticular 4 O Monocryl skin suture. The wounds were dressed with Exofin surgical adhesive. Patient was awakened and taken to recovery in good condition. Sponge and needle counts were correct x2. Anesthesia: GETA and local (0.5% Marcaine) Surgeon: Eldon Ardon MD Operations Boardman: Sakshi ORTIZ Estimated blood loss (mL): 20 Drains: No Packing: No Pathology: yes (Gallbladder) Complications: None Condition: stable Disposition: PACU Findings: Chronic inflammation, many adhesions, no gallstones noted. No biliary ductal dilatation, no liver abnormalities.
--- NOTE | 2020-03-13 12:40 | SUR.PHASEI ---
pt put on bipap upon arrival at 1221 05/12 with 10 backup resp.
--- NOTE | 2020-03-13 13:20 | SUR.PHASEI ---
1230 pt on bipap at 50% o2
[2020-03-13] MEDS: ONDANSETRON INJ 4 MG/2 ML VIAL IV PUSH (13:44)
--- NOTE | 2020-03-13 14:03 | SUR.PHASEI ---
1345 pt nauseated, bipap removed placed on 4L nc, 4mg iv push zofran given. 1400 pt doing ok on 4L nc, vss. no pain nausea improving
--- NOTE | 2020-03-13 15:20 | SUR.PHASEII ---
Addendum entered by Chadd Goode RN 03/13/20 15:22: pt alertx3 signed own consent Original Note: 1500 pt transferred to ri, brandi avitia rn and boris young
--- NOTE | 2020-03-13 17:18 | SUR.PHASEII ---
[address] mccord and dr paz on results of chest ct done earlier after chest xray showed abnormalities and suggested a chest ct. results from chest ct relayed to both doctors and both concurr that pt is ok for discharge.
== END 2020-03-13 17:17 | disposition home or self-care (01) ==
PROVIDERS: PCP Family Medicine; Visit Provider Surgery
PROC: 0FT44ZZ Resection of Gallbladder, Percutaneous Endoscopic Approach (ICD-10-PCS; CPT 47562; principal; 2020-03-13 10:30)
DX: K81.1 Chronic cholecystitis (principal); E78.00 Pure hypercholesterolemia, unspecified; E03.9 Hypothyroidism, unspecified; I34.1 Nonrheumatic mitral (valve) prolapse; D64.9 Anemia, unspecified; J45.909 Unspecified asthma, uncomplicated; F32.9 Major depressive disorder, single episode, unspecified; E66.9 Obesity, unspecified; Z68.38 Body mass index [BMI] 38.0-38.9, adult
CPT/HCPCS: 47562; 71045; 71260; 88304; 94002; A9270; C1713; J0330; J0690; J1100; J1885; J2250; J2310; J2405; J2704; J2710; J3010; J7120; Q9967

== ENCOUNTER 2020-08-19 06:41 | Outpatient (CLI) | payer OTHER, SELFPAY ==
--- NOTE | ~2020-08-19 | XR_ITS ---
EXAMINATION: XR chest 2V DATE: 08/19/2020 07:01 INDICATION: Dyspnea. Ankle and feet swelling. TECHNIQUE: PA and lateral views of the chest were obtained. COMPARISON: Chest radiograph and CT dated 03/13/2020 FINDINGS: Mild airspace opacities along the apex of the chronically elevated left hemidiaphragm. The prior opac ities in the perihilar region and left upper lung zone have resolved. Minimal streaky atelectasis at the right costophrenic angle. No pulmonary edema, pleural effusion or pneumothorax. Cardiomegaly. Cho lecystectomy clips in right upper quadrant. Mild upper thoracic levoscoliosis. IMPRESSION: 1. Mild opacities along the elevated left hemidiaphragm and favor atelectasis over pneumonia. 2. Cardiomegaly without pulmonary edema. Reviewed, dictated and finalized at location A. IMPRESSION: 1. Mild opacities along the elevated left hemidiaphragm and favor atelectasis o cody pneumonia. 2. Cardiomegaly without pulmonary edema.
== END 2020-08-19 06:42 | disposition home or self-care (01) ==
LOC: ANHIMG 06:46
PROVIDERS: PCP Family Medicine; Visit Provider Nurse Practitioner
DX: R06.00 Dyspnea, unspecified (principal); R60.0 Localized edema; R91.8 Other nonspecific abnormal finding of lung field; I51.7 Cardiomegaly
CPT/HCPCS: 71046

== ENCOUNTER → 2020-11-20 02:40 | Outpatient (CLI) | payer OTHER, SELFPAY ==
[2020-11-20 16:55] LABS: SARS-CoV-2 RNA PCR Negative
== END ==
PROVIDERS: PCP Family Medicine; Visit Provider Nurse Practitioner
DX: Z20.822 Contact with and (suspected) exposure to COVID-19 (principal)
CPT/HCPCS: C9803; U0003; U0005

== ENCOUNTER → 2021-07-31 02:26 | Outpatient (CLI) | payer OTHER, SELFPAY ==
[2021-07-31 16:50] LABS: SARS-CoV-2 RNA PCR Positive
== END ==
PROVIDERS: PCP Family Medicine; Visit Provider Nurse Practitioner Family
DX: U07.1 COVID-19 (principal)
CPT/HCPCS: C9803; U0003; U0005

== ENCOUNTER 2021-09-21 08:22 | Outpatient (CLI) | payer OTHER, SELFPAY ==
--- NOTE | ~2021-09-21 | MR_ITS ---
EXAMINATION: MR lumbar spine wo con DATE: 09/21/2021 09:00 INDICATION: Low back pain. TECHNIQUE: Magnetic resonance imaging (MRI) of the lumbar spine was performed without intravenous con trast. Sequences included sagittal T2-weighted FSE, sagittal T2-weighted FS FSE, sagittal T1-weighted FSE, and axial T2-weighted FSE. COMPARISON: None FINDINGS: Bone alignment is normal. Vertebral body heights are normal. There is mildly decreased disc height at L4-L5. The distal spinal cord signal intensity is normal. The conus medullaris is at L1-L2 . There is clumping and peripheral displacement of the cauda equina at L5-S1, consistent with arachno iditis. The following disc levels are specifically discussed: L1-L2: The disc does not extend beyond the endplate margin. There is mild bilateral facet joint osteo arthritis. There is no neural foraminal stenosis. There is no central canal stenosis. L2-L3: The disc does not extend beyond the endplate margin. There is no facet joint osteoarthritis. T here is no neural foraminal stenosis. There is no central canal stenosis. L3-L4: The disc does not extend beyond the endplate margin. There is no facet joint osteoarthritis. T here is no neural foraminal stenosis. There is no central canal stenosis. L4-L5: The disc is bulging. There is mild left facet joint osteoarthritis. There is mild bilateral ne ural foraminal stenosis. There is mild central canal stenosis. L5-S1: The disc does not extend beyond the endplate margin. There is no facet joint osteoarthritis. T here is no neural foraminal stenosis. There is no central canal stenosis. IMPRESSION: 1. Mild lumbar spondylosis. Reviewed, dictated and finalized at location A. IMPRESSION: 1. Mild lumbar spondylosis.
== END 2021-09-21 08:23 | disposition home or self-care (01) ==
PROVIDERS: PCP Family Medicine; Visit Provider Nurse Practitioner
DX: M54.50 Low back pain, unspecified (principal); M47.816 Spondylosis without myelopathy or radiculopathy, lumbar region
CPT/HCPCS: 72148

== ENCOUNTER 2023-01-10 08:04 | Emergency (ER) | payer OTHER, SELFPAY ==
--- NOTE | 2023-01-10 08:05 | ED.URI ---
HPI - URI/Sore Throat General Chief Complaint: Upper Respiratory Infection Stated Complaint: Sinus Time Seen by Provider: 01/10/23 08:30 Source: patient and RN notes reviewed Mode of arrival: ambulatory Limitations: no limitations History of Present Illness HPI Narrative: 62-year-old female presents with concern for sore throat, sinus congestion, headache. She reports symptoms started on Tuesday. Reports she has been taking DayQuil and NyQuil with some relief. She reports a history of asthma, she last had to use her albuterol inhaler yesterday. MD elicited complaint: cough and sore throat Related Data Allergies Allergy/AdvReac Type Severity Reaction Status Date / Time morphine Allergy Mild Itching Verified 11/29/22 13:08 Review of Systems Review of Systems: CONSTITUTIONAL: Denies malaise, chills, sweats, or fever. EYES: Denies visual changes, redness, or discharge. ENT: Reports rhinorrhea, congestion, and sore throat. CARDIOVASCULAR: Denies chest pain, palpitations, or edema. RESPIRATORY: Reports cough. Denies dyspnea. GASTROINTESTINAL: Denies abdominal pain, nausea, vomiting, diarrhea SKIN: Denies rash or itching. MUSCULOSKELETAL: Denies myalgia. NEUROLOGIC: Denies headache. All systems reviewed & are unremarkable except as noted in HPI and below PMFSH Past Medical History Medical History Anemia Anxiety Arthritis Asthma Chronic back pain Chronic cholecystitis without calculus Depression Dyspnea on exertion Fractures Arm History of blood transfusion Hypercholesteremia Hypothyroidism Localized edema Migraines Mitral valve prolapse Obstructive sleep apnea (~02/2020) Surgical History Surgical History H/O tubal ligation (~1999) History of hemorrhoidectomy (~2005) History of orthopedic surgery Left knee, 1979 Hx laparoscopic cholecystectomy 03/13/20 Previous section (~1998) Family History Family History Mother Hypertension Heart disease COPD (chronic obstructive pulmonary disease) Father , 70 Family history of coronary artery disease Social History Social History Smoking status: Never smoker Alcohol intake: current Alcohol use details: social Substance use: never Other substance usage details: gummy thc Lack of Transportation: No Lack of Food: Never True Current Housing: I Have Housing Concerned About Future Housing: YES Difficulty Paying Gas/Electric Bills: No Difficulty Paying for Meds: No Currently Unemployed: No Education: High School Diploma/GED Living arrangements: with family Additional living arrangements comments: mother and son Occupation/Education: occupation 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 There is no relevant family history pertinent to the presenting complaint Exam Narrative: GENERAL: Well-appearing, well-nourished, and in no acute distress. HEAD: Normocephalic EYES: PERRLA, conjunctivae clear ENT: Nares clear. Mucous membranes moist. TM pearly grant with sharp light reflex bilaterally; no tragal tenderness. Oropharynx not erythematous without lesions. Tonsils not enlarged and without exudate, no drooling, no hoarseness, no trismus, uvula midline. NECK: Supple. No lymphadenopathy CHEST: Clear to auscultation, breath sounds equal. No wheezing, rhonchi, rales, or stridor. No respiratory distress, speaks in full sentences. HEART: Regular rate and rhythm. No murmur heard. SKIN: Warm, dry, no rash. NEURO: Alert and oriented x3. PSYCH: Normal mood and affect Course Course E
[2023-01-10 08:17] VITALS: BP 136/78; PULSE 81; RESP 20; TEMP 36.4; O2SAT 98
== END 2023-01-10 08:50 | disposition home or self-care (01) ==
PROVIDERS: Emergency Provider Nurse Practitioner; PCP Family Medicine
DX: U07.1 COVID-19 (principal); E03.9 Hypothyroidism, unspecified; Z20.822 Contact with and (suspected) exposure to COVID-19
CPT/HCPCS: 87081; 87426; 87880; 99213; C9803; G0463

== ENCOUNTER 2024-02-01 08:07 | Emergency (ER) | payer OTHER, SELFPAY ==
[2024-02-01 08:19] VITALS: BP 136/79; PULSE 82; RESP 20; TEMP 36.2; O2SAT 97
--- NOTE | 2024-02-01 08:44 | ED.URI ---
HPI - URI/Sore Throat General Chief Complaint: Upper Respiratory Infection Stated Complaint: head congestion,coughing Time Seen by Provider: 02/01/24 08:48 Source: patient and RN notes reviewed Mode of arrival: ambulatory Limitations: no limitations History of Present Illness HPI Narrative: 63-year-old female with history of asthma presents with concern for cough, chest congestion. Reports she is using inhaler every 6 hours. She reports nasal congestion and rhinorrhea. She denies fever MD elicited complaint: cough and sore throat Related Data Allergies Allergy/AdvReac Type Severity Reaction Status Date / Time morphine Allergy Mild Itching Verified 02/01/24 08:50 Review of Systems Review of Systems: CONSTITUTIONAL: Denies malaise, chills, sweats, or fever. EYES: Denies visual changes, redness, or discharge. ENT: Reports rhinorrhea, congestion. Denies sinus pain, otalgia and sore throat. CARDIOVASCULAR: Denies chest pain, palpitations, or edema. RESPIRATORY: Reports cough, chest congestion. Denies dyspnea. GASTROINTESTINAL: Denies abdominal pain, nausea, vomiting, diarrhea SKIN: Denies rash or itching. MUSCULOSKELETAL: Denies myalgia. NEUROLOGIC: Denies headache. All systems reviewed & are unremarkable except as noted in HPI and below PMFSH Past Medical History Medical History Anemia Anxiety Arthritis Asthma Chronic back pain Chronic cholecystitis without calculus Depression Dyspnea on exertion Fractures Arm History of blood transfusion Hypercholesteremia Hypothyroidism Localized edema Migraines Mitral valve prolapse Obstructive sleep apnea (~02/2020) Surgical History Surgical History H/O tubal ligation (~1999) History of hemorrhoidectomy (~2005) History of orthopedic surgery Left knee, 1979 Hx laparoscopic cholecystectomy 03/13/20 Previous section (~1998) Family History Family History Mother Hypertension Heart disease COPD (chronic obstructive pulmonary disease) Father , 70 Family history of coronary artery disease Social History Social History Smoking status: Never smoker Alcohol intake: current Alcohol use details: social Substance use: never Other substance usage details: gummy thc Lack of Transportation: No Lack of Food: Never True Current Housing: I Have Housing Concerned About Future Housing: YES Difficulty Paying Gas/Electric Bills: No Difficulty Paying for Meds: No Currently Unemployed: No Education: High School Diploma/GED Living arrangements: with family Additional living arrangements comments: mother and son Occupation/Education: occupation 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 There is no relevant family history pertinent to the presenting complaint Exam Narrative: GENERAL: Well-appearing, well-nourished, and in no acute distress. HEAD: Normocephalic EYES: PERRLA, conjunctivae clear ENT: Nares clear. Mucous membranes moist. TM pearly grant with dull light reflex bilaterally; no tragal tenderness. Oropharynx not erythematous without lesions. Tonsils not enlarged and without exudate, no drooling, no hoarseness, no trismus, uvula midline. NECK: Supple. No lymphadenopathy CHEST: Scattered wheeze and rhonchi, otherwise Clear to auscultation, breath sounds equal. No rales, or stridor. No respiratory distress, speaks in full sentences. HEART: Regular rate and rhythm. No murmur heard. SKIN: Warm, dry, no rash. NEURO: Alert and oriented x3. PSYCH: Normal mood and affect Course Course Emergency Course: Patient is aware of diagnosis, understands and agrees to treatment plan. Anticipatory guidance given. Patient agrees to follow-up as directed and is aware of reasons to seek care at the emergency department. Portions of this record may have been created with voice recognition software Level of Care: Express Care Visit Vital Signs Vital signs: Vital Signs Temperature 97.2 F L 02/01/24 08:19 Pulse Rate 82 02/01/24 08:19 Respiratory Rate 20 02/01/24 08:19 Blood Pressure 136/79 02/01/24 08:19 Pulse Oximetry 97 02/01/24 08:19 Oxygen Delivery Room Air 02/01/24 08:19 Temperature 97.2 F L 02/01/24 08:19 Pulse Rate 82 02/01/24 08:19 Respiratory Rate 20 02/01/24 08:19 Blood Pressure 136/79 02/01/24 08:19 Pulse Oximetry 97 02/01/24 08:19 Oxygen Delivery Room Air 02/01/24 08:19 Reviewed. MDM - URI/Sore Throat MDM Narrative Medical decision making narrative: Differential diagnosis considered: Xie virus, strep pharyngitis, allergic rhinitis, upper respiratory tract infection, sinusitis, rhinosinusitis, nasopharyngitis. viral pharyngitis, otitis media, otitis externa, pneumonia, bronchitis, viral cough syndrome, viral syndrome, and influenza. Exam findings show no acute concerns or changes; patient is non-toxic appearing and is in no distress. Patient is appropriate for outpatient treatment and follow-up. Lab Data Attestation: I reviewed the patient's lab results. Critical Care Time Critical Care Time Critical Care Time: No Discharge Plan Discharge Clinical Impression: Asthma exacerbation Patient Disposition: Home, Self-Care Condition: Stable Instructions: Antibiotic Form, Asthma (ED) Additional Instructions: Take medicines as directed. Visit your primary care doctor if: You have wheezing, shortness of breath, or a cough even if taking medicine to prevent attacks. You have thickening of sputum. Your sputum changes from clear or white to yellow, green, grant, or bloody. You have any problems that may be related to the medicines you are taking (such as a rash, itching, swelling, or trouble breathing). You are using a reliever medicine more than 2 to 3 times per week. Visit the ER if: You are short of breath even at rest or when doing very little physical activity. You develop difficulty eating, drinking, or talking due to asthma symptoms. You have chest pain or you feel that your heart is beating fast. You are lightheaded, dizzy, faint or have bluish lips or fingernails. You have a fever or persistent symptoms for more than 2 to 3 days or symptoms suddenly get worse. You seem to be getting worse and are unresponsive to treatment during an asthma attack. Patient Language: Serbian Prescriptions: New azithromycin [Zithromax Z-Ovidio] 250 mg tablet See Rx Instructions .ROUTE .COMPLEX Qty: 6 0RF Rx Instructions: take 500 mg today (day 1), then 250 mg for 4 days (days 2-5) methylprednisolone [Medrol (Ovidio)] 4 mg tablets,dose pack See Rx Instructions .ROUTE .COMPLEX Qty: 21 0RF Rx Instructions: orally per package directions No Action albuterol sulfate 2.5 mg /3 mL (0.083 %) solution for nebulization 2.5 mg inhalation Q4-6H PRN (Reason: shortness of breath or wheezing) Qty: 75 1RF albuterol sulfate [ProAir HFA] 90 mcg/actuation HFA aerosol inhaler 2 puff INHALATION PRN PRN (Reason: Shortness Of Breath) Qty: 6.7 2RF [id number] [Fioricet] 50-300-40 mg capsule 1 cap PO Q6H PRN (Reason: pain) Qty: 30 1RF ezetimibe 10 mg tablet 10 mg PO DAILY Qty: 90 1RF fluoxetine 20 mg capsule 20 mg PO DAILY Qty: 90 1RF atorvastatin 80 mg tablet 80 mg PO DAILY Qty: 90 1RF budesonide-formoterol [Symbicort] 160-4.5 mcg/actuation HFA aerosol inhaler 1 puff inhalation ONCE Qty: 10.2 2RF Rx Instructions: 1 puff per day in the morning. Rinse mouth after use. bupropion HCl [Wellbutrin XL] 150 mg tablet extended release 24 hr 150 mg PO QAM Qty: 90 0RF meloxicam 15 mg tablet 15 mg PO DAILY Qty: 90 1RF gabapentin 300 mg capsule 600 mg PO DAILY Qty: 180 1RF levothyroxine 25 mcg tablet 25 mcg PO DAILY Qty: 90 0RF Rx Instructions: to take in addition to levothyroxine 200 mcg p.o. q.day cholecalciferol (vitamin D3) 1,250 mcg (50,000 unit) capsule 1,250 mcg PO WEEKLY Qty: 14 1RF levothyroxine 200 mcg tablet 200 mcg PO DAILY Qty: 90 0RF Rx Instructions: to take in addition to levothyroxine 25 mcg p.o. q.day Follow-up/Referrals: Sadi Castrejon MD [Primary Care Provider] - Stand Alone Forms: Work/School Release IP Time of Disposition: 09:00
== END 2024-02-01 09:11 | disposition home or self-care (01) ==
PROVIDERS: Emergency Provider Nurse Practitioner; PCP Family Medicine
DX: J45.901 Unspecified asthma with (acute) exacerbation (principal); E78.00 Pure hypercholesterolemia, unspecified; E03.9 Hypothyroidism, unspecified; I34.1 Nonrheumatic mitral (valve) prolapse; M19.90 Unspecified osteoarthritis, unspecified site
CPT/HCPCS: 99213; G0463

== ENCOUNTER 2024-11-02 07:20 | Emergency (ER) | payer OTHER, SELFPAY ==
--- NOTE | ~2024-11-02 | XR_ITS ---
EXAMINATION: XR ribs LT 2V w CXR 2V DATE: 11/02/2024 08:14 INDICATION: Nontraumatic pain after lifting wheelchair TECHNIQUE: PA and lateral views of the chest and 3 views of the left ribs were obtained. COMPARISON: Chest radiograph dated 08/19/2020 FINDINGS: There is elevation the left hemidiaphragm. Airspace opacities in the left lower lung zone including possible small left pleural effusion. Minimal right basilar atelectasis. No pneumothorax or right-sided pleural effusion. Heart size within normal limits for AP technique. Cholecystectomy clips in right upper quadrant. No evident rib fractures. IMPRESSION: 1. No evident rib fractures. 2. Elevation of left hemidiaphragm atelectasis and/or pneumonia in the left lower lung zone along with possible small left pleural effusion. Reviewed, dictated and finalized at location A. IMPRESSION: 1. No evident rib fractures. 2. Elevation of left hemidiaphragm atelectasis and/or pneumonia in the left low er lung zone along with possible small left pleural effusion.
--- NOTE | ~2024-11-02 | XR_ITS ---
XR thoracic spine 3V Indication: Lifting wheelchair Comparison: None Findings: Levoconvex scoliosis in the upper thoracic spine. No fracture is identified or subluxation. The disc heights are intact. Soft tissues unremarkable Impression: No acute abnormality. Reviewed, dictated and finalized at location A. Impression: No acute abnormality.
--- OUTSIDE RECORDS SUMMARY | 2024-11-02 07:23 | XMS_ITS | Clinical Summary ---
Author Organization [facility] Address [address] [place] [id number] Care Team Providers Care Dado Operator Name Role Phone Unavailable Primary Care Provider Unavailabl e Social History Tobacco Use Types Packs/Day Years Used Date Smoking Tobacco: Never Assessed Comments Unknown Sex and Gender Information Value Date Recorded Sex Assigned at Not on file Legal Sex Female 4:39 PM CDT Gender Identity Not on file Sexual Orientation Not on file Plan of Treatment Health Maintenance Due Date Last Done Comments Cervical Cancer Screening Pa p Smear (Age 30 to 64) Every 3 Years 1962 Colorectal Cancer Screening Colonoscopy (10 Years) 1962 Annual Physical 1965 Hepatitis C 1980 DTaP, Tdap and Td Vaccines ( 1 - Tdap) 1981 Cervical Cancer Screening Pa p with HPV Testing (Age 30 to 64) Every 5 Years 1992 Cervical Cancer Screening with HPV 1992 Mammogram Screening 2002 Pneumococcal Vaccine: 50+ Ye ars (1 of 1 - PCV) 2012 Zoster Vaccines (1 of 2) 2012 COVID-19 Vaccine (1 - 2023-2 5 season) 2024 RSV Immunization or 60+ Years (1 - 1-dose 75+ series) 2037 Meningococcal B Vaccine Aged Out No l onger eligible based on patient's age to complete this topic Meningococcal Vaccine Aged Out No alexy namrata eligible based on patient's age to complete this topic RSV Immunizations Under 20 Months Aged Out No longer eligible based on patient's age to complete this topic
[2024-11-02 07:31] VITALS: BP 143/68; PULSE 87; RESP 18; TEMP 36.6; O2SAT 94
--- NOTE | 2024-11-02 07:40 | ED_ITS ---
HPI - Back Pain/Injury General Chief Complaint: Back Pain/Injury Stated Complaint: back pain injured it 3wks ago Time Seen by Provider: 11/02/24 07:34 Source: patient Mode of arrival: ambulatory Limitations: no limitations History of Present Illness HPI Narrative: 64 years old white female drove herself to the emergency room complaining of upper back pain across mainly on the left side started 2 weeks ago after lifting wheelchair out of the truck. Sharp aching pain, worse with movement, position, taking deep breath, slightly better with a heating pad, Tylenol, ibuprofen patient denies any nausea, vomiting, headache, chest pain or shortness of breath Related Data Allergies Allergy/AdvReac Type Severity Reaction Status Date / Time morphine Allergy Mild Itching Verified 11/02/24 08:36 Review of Systems Review of Systems: All systems reviewed & are unremarkable except as noted in HPI and below PMFSH Past Medical History Medical History Vitamin D deficiency Anxiety Obstructive sleep apnea (~02/2020) Chronic cholecystitis without calculus History of blood transfusion Dyspnea on exertion Anemia Depression Hypothyroidism Chronic back pain Fractures Arm Arthritis Hypercholesteremia Asthma Mitral valve prolapse Migraines Surgical History Surgical History Hx laparoscopic cholecystectomy 03/13/20 H/O tubal ligation (~1999) History of hemorrhoidectomy (~2005) History of orthopedic surgery Left knee, 1980 Previous section (~1998) Family History Family History Mother Hypertension Heart disease COPD (chronic obstructive pulmonary disease) Father , 70 Family history of coronary artery disease Social History Social History Smoking status: Never smoker Alcohol intake: current Alcohol use details: social Substance use: never Other substance usage details: gummy thc Lack of Transportation: No Lack of Food: Never True Current Housing: I Have Housing Concerned About Future Housing: YES Difficulty Paying Gas/Electric Bills: No Difficulty Paying for Meds: No Currently Unemployed: No Education: High School Diploma/GED Living arrangements: with family Additional living arrangements comments: mother and son Occupation/Education: occupation 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 [employer]OUNTER is normal as tested, no gross motor deficit Course Vital Signs Vital signs: Vital Signs Temperature 36.6 C 11/02/24 07:31 Pulse Rate 87 11/02/24 07:31 Respiratory Rate 18 11/02/24 07:31 Blood Pressure 143/68 H 11/02/24 07:31 Pulse Oximetry 94 11/02/24 07:31 Oxygen Delivery Room Air 11/02/24 07:31 Temperature 36.6 C 11/02/24 07:31 Pulse Rate 87 11/02/24 07:31 Respiratory Rate 18 11/02/24 07:31 Blood Pressure 143/68 H 11/02/24 07:31 Pulse Oximetry 94 11/02/24 07:31 Oxygen Delivery Room Air 11/02/24 07:31 MDM - Back Pain/Injury MDM Narrative Medical decision making narrative: Differential diagnosis include strain/sprain of the back muscle less likely rib fracture or vertebral fracture. Differential Diagnosis Differential diagnosis: Likely other (As above) Medical Records Attestation: I reviewed the patient's medical records. Imaging Data Radiologist's impression: Impressions Thoracic Spine X-Ray 11/02/24 08:15 Impression: No acute abnormality. Ribs w/Chest X-Ray 11/02/24 08:25 IMPRESSION: 1. No evident rib fractures. 2. Elevation of left hemidiaphragm atelectasis and/or pneumonia in the left lower lung zone along with possible small left pleural effusion. Critical Care Time Critical Care Time Critical Care Time: No Discharge Plan Discharge Clinical Impression: Back pain Patient Disposition: Home Condition: Stable Instructions: Back Pain (ED) Additional Instructions: Return if symptoms are worsening , call your family physician for appointment, take Tylenol as as needed for aches and pain, continue home medications. Massage Heating pad Back exercise Patient Language: Korean Prescriptions: New cyclobenzaprine 10 mg tablet 10 mg PO TID PRN (Reason: muscle spasm) Qty: 20 0RF No Action levothyroxine 25 mcg tablet 25 mcg PO DAILY Qty: 90 0RF Rx Instructions: to take in addition to levothyroxine 200 mcg p.o. q.day levothyroxine 200 mcg tablet 200 mcg PO DAILY Qty: 90 0RF Rx Instructions: to take in addition to levothyroxine 25 mcg p.o. q.day gabapentin 300 mg capsule 600 mg PO DAILY Qty: 180 1RF bupropion HCl [Wellbutrin XL] 150 mg tablet extended release 24 hr 150 mg PO QAM Qty: 90 1RF nlzbxftypa-nnzcsuviepisu-movn [Fioricet] 50-300-40 mg capsule 1 cap PO Q6H PRN (Reason: pain) Qty: 30 1RF fluoxetine 20 mg capsule 20 mg PO DAILY Qty: 90 1RF fluticasone propion-salmeterol [Advair HFA] 230-21 mcg/actuation HFA aerosol inhaler 2 puff inhalation BID Qty: 12 4RF albuterol sulfate [Ventolin HFA] 90 mcg/actuation HFA aerosol inhaler 1 inh inhalation Q4-6H PRN (Reason: shortness of breath or wheezing) Qty: 8.5 3RF meloxicam 15 mg tablet 15 mg PO DAILY Qty: 90 1RF cholecalciferol (vitamin D3) 50 mcg (2,000 unit) capsule 50 mcg PO DAILY Qty: 1 0RF Follow-up/Referrals: Sadi Castrejon MD [Primary Care Provider, Family Practice]
== END 2024-11-02 09:01 | disposition home or self-care (01) ==
PROVIDERS: Emergency Provider Emergency Medicine; PCP Family Medicine
DX: M54.6 Pain in thoracic spine (principal); E03.9 Hypothyroidism, unspecified; J45.909 Unspecified asthma, uncomplicated
CPT/HCPCS: 71046; 71100; 72072; 99284